=== PATIENT | male | born 1995 | race Caucasian/White ===

== ENCOUNTER 2017-12-29 23:06 | Emergency (ER) | payer MEDICAID ==
[~2017-12-29] VITALS: Ht 182.9 cm; Wt 95.3 kg
[2017-12-29 23:06] VITALS: BP_SYST 121
[2017-12-30 01:26] VITALS: BP_SYST 118
== END 2017-12-30 01:26 | disposition home or self-care (01) ==
LOC: SED 23:06
DX: S96.911A Strain of unspecified muscle and tendon at ankle and foot level, right foot, initial encounter (principal); J45.909 Unspecified asthma, uncomplicated; F90.9 Attention-deficit hyperactivity disorder, unspecified type; W18.40XA Slipping, tripping and stumbling without falling, unspecified, initial encounter; Y93.67 Activity, basketball; Y92.320 Baseball field as the place of occurrence of the external cause; Y99.8 Other external cause status
CPT/HCPCS: 99284